=== PATIENT | female | born 1995 | race Caucasian/White ===

== ENCOUNTER → 2016-11-04 | Outpatient (CLI) | payer BC | LOC: BMCIMAGING 15:03 | PROVIDERS: ATTEND Internal Medicine | DX: J40 Bronchitis, not specified as acute or chronic (principal); R50.9 Fever, unspecified ==

== ENCOUNTER → 2018-01-05 | Outpatient (CLI) | payer BC | LOC: BMCIMAGING 14:08 | PROVIDERS: ATTEND Internal Medicine | DX: R05 Cough (principal); J98.09 Other diseases of bronchus, not elsewhere classified ==

== ENCOUNTER 2018-07-30 16:17 | Emergency (ER) | payer BC ==
[2018-07-30] MEDS ORDERED: IBUPROFEN 600 MG TAB PO ONE (18:17)
--- NOTE | 2018-07-30 18:17 | EDPHY ---
General Time Seen by Provider: 07/30/18 17:21 Narrative: CLINICAL IMPRESSION: Left hand laceration ASSESSMENT/PLAN: 22-year-old female presents to the emergency department with an acute left hand laceration after she cut herself with a knife while trying to put a hole in her belt. Patient has a 4 cm laceration to the thenar eminence of the left hand. Intact range of motion of the thumb, all fingers, intact flexion and extension of the wrist, neurovascular exam intact. No evidence of underlying deep structure, vascular or tendon injury. Wound was thoroughly explored with no evidence of foreign body. Tetanus up-to-date. Wound repaired as per chart notes below, signs and symptoms of infection reviewed, warning signs return to ED sooner alignment discharge. DIFFERENTIAL DIAGNOSIS: includes but not limited to laceration of tendon or vascular structure, underlying fracture, laceration with retained FB ED PROCECURES: Laceration Repair Verbal consent obtained by patient. Risks discussed, including but not limited to infection, pain, retained foreign body, need for additional repair, poor cosmetic result, tendon damage, nerve damage, poor wound healing, vascular damage. Alternatives to repair discussed. Yeaddiss protocol used to establish correct patient, procedure, equipment, system support developer, and site. Anesthesia obtained by local infiltration. Anesthetized with 0.5% bupivacaine with epinephrine. Laceration location left palm, length 4 cm, depth 4 mm, Repair type simple. Patient was prepped and draped in usual sterile fashion. Hemostasis achieved with direct pressure. Wound explored through full range of motion and entire depth of wound probed and visualized with gloved finger. No suspicion for nerve damage, tendon damage, underlying fracture, vascular damage, foreign body, or contamination. Area was cleansed with Shur-Clens and irrigated with sterile saline as per protocol. No foreign body or material removed. Repair method 4 0 Prolene simple interrupted sutures. Eight sutures placed. Well aligned, closely approximated. wound was dressed with bacitracin and dressing. Patient tolerated well with no immediate complications. Wound care: Clean and dry x 24 hours, gently clean with soap and water, cover with topical antibiotic ointment/bandage. Suture/Staple removal: 10-14 Days CHIEF COMPLAINT: Laceration to left hand HPI: 22-year-old female presents to the emergency department with acute left hand laceration sustained on a knife that she was using to try to cut a hole in her belt. Patient slipped and cut her hand. She reports no loss of sensation to the thumb, fingers, wrist or hand. Tetanus up-to-date. Normal range of motion of thumb and all fingers. Intact flexion extension of the wrist. PAST MEDICAL HISTORY: None reported Pertinent Past Surgical History: None reported Social History: Otherwise healthy REVIEW OF SYSTEMS: All other systems negative Constitutional: No fever, no chills Musculoskeletal: No deformity, no joint pain Skin: 4 cm laceration to left hand Neurological: No sensory loss or weakness, 2 point discrimination intact. PHYSICAL EXAM: General Appearance: Alert, oriented, appropriate for age, cooperative, NAD, well hydrated, non-toxic appearing, VSS, no hypoxia. Neurological: Alert and oriented x 3 Skin: 4 cm laceration to the thenar eminence of the left hand Musculoskeletal: Full abduction and adduction of the thumb intact, normal range of motion of all fingers, intact flexion extension of the wrist, distal 2 point discrimination intact. MEDICAL DECISION MAKING: Patient was seen independently. Secondary supervising physician at time of evaluation was Dr. Toro. Diagnosis: Left hand laceration . New, requires workup Summary: See assessment and plan for summary of ED visit Patient Progress improved. - History Smoking Status: Never smoked - Objective Vital Signs: Initial Vital Signs Heart Rate 60 07/30/18 16:22 Respiratory Rate 18 07/30/18 16:22 Blood Pressure 115/75 07/30/18 16:22 O2 Sat (%) 98 07/30/18 16:22 O2 Delivery Mode Room Air Allergies/Adverse Reactions: No Known Allergies Allergy (Unverified 07/30/18 16:24) Home Medications: Medication Instructions Recorded NK [No Known Home Meds] 07/30/18 Medications Given: Discontinued Medications Ibuprofen (Motrin) 600 mg PO EDNOW ONE Stop: 07/30/18 18:18 Last Admin: 07/30/18 18:27 Dose: 600 mg Departure - Departure Disposition: Home, Routine, Self-Care Clinical Impression: Hand laceration Qualifiers: Encounter type: initial encounter Foreign body presence: without foreign body Laterality: left Qualified Code(s): S61.412A - Laceration without foreign body of left hand, initial encounter Condition: Good Instructions: Laceration (ED) Additional Instructions: DISCHARGE INSTRUCTIONS FROM YOUR DOCTOR Thank you for visiting our emergency department today. Please keep in mind that discharge from the emergency department does not mean that there is nothing wrong - it simply means that we have not identified an emergency condition that requires further evaluation or treatment in the hospital. You should always plan to follow up with primary care for re-evaluation of your condition in the next 2-3 days. If you have been referred to a specialist, please call as soon as possible (today or tomorrow) to schedule your follow up appointment at the appropriate time. PLEASE HAVE 8 SUTURES/SUNG REMOVED IN 10-14 DAYS. YOU CAN RETURN TO THE EMERGENCY DEPARTMENT OR YOUR PRIMARY CARE FOR SUTURE/STAPLE REMOVAL. AVOID SUBMERGING SUTURES/SUNG UNDERWATER FOR PROLONGED PERIOD OF TIME UNTIL REMOVED. KEEP WOUND CLEAN AND DRY, COVER WITH ANTIBIOTIC OINTMENT AND BAND-AID. RETURN TO EMERGENCY DEPARTMENT FOR REDNESS, SWELLING, DISCHARGE, WARMTH TO THE SKIN, OR ANY OTHER CONCERNS FOR INFECTION. People present with illnesses and injuries in different ways, and it is always possible that we have missed something. You may always return for re-evaluation if symptoms worsen or if they are not improving or if you develop new/different symptoms. Again, thank you for choosing our emergency department. We hope that you feel better. Referrals: NONE *PRIMARY CARE P,. [Primary Care Provider] - As per Instructions
[2018-07-30 18:44] VITALS: BP 111/79
== END 2018-07-30 18:44 | disposition home or self-care (01) ==
PROC: 0HQGXZZ Repair Left Hand Skin, External Approach (ICD-10-PCS; principal; 2018-07-30)
DX: S61.412A Laceration without foreign body of left hand, initial encounter (principal); W26.0XXA Contact with knife, initial encounter; Y92.9 Unspecified place or not applicable; Y99.9 Unspecified external cause status; Y93.9 Activity, unspecified